=== PATIENT | male | born 1995 | race African-American/Black ===

== ENCOUNTER 2022-09-06 04:44 | Emergency (ER) | payer MEDICAID ==
[~2022-09-06] VITALS: Ht 172.7 cm; Wt 78.0 kg
[2022-09-06 04:46] VITALS: BP 110/78; PULSE 80; RESP 20; TEMP 98.8; O2SAT 99
== END 2022-09-06 11:19 | disposition left against medical advice (07) ==
LOC: ER 04:58
DX: Z53.21 Procedure and treatment not carried out due to patient leaving prior to being seen by health care provider (principal)
CPT/HCPCS: 99281